=== PATIENT | male | born 1975 | race African-American/Black ===

== ENCOUNTER 2019-03-25 00:42 | Emergency (ER) | payer OTHER ==
[2019-03-25] MEDS ORDERED: Diphtheria,Pertussis(Acell),Tetanus Vaccine 0.5 ML Syringe IM ONE (01:32)
[2019-03-25] MEDS ORDERED: Bacitracin Oint 1 GM U/D Packet TOP ONE (01:32)
--- NOTE | 2019-03-25 01:38 | EDM.PDOC ---
ED HPI GENERAL MEDICAL PROBLEM - General Chief Complaint: Laceration Stated Complaint: CUT FINGER ON RT HAND Time Seen by Provider: 03/25/19 01:29 - History of Present Illness INITIAL COMMENTS - FREE TEXT/NARRATIVE: HISTORY AND PHYSICAL: History of present illness: The patient is a 44-year-old male who presents after cutting his right distal middle finger on a slicer. The patient only speaks Estonian and we are currently trying to get translation as our Kartela is not working. In speaking with the patient he denies any medical history and social history and his last tetanus shot is up-to-date using a cell phone sustainable design coordinator. He has no other injuries. Review of systems: As per history of present illness and below otherwise all systems reviewed and negative. Past medical history: As per history of present illness and as reviewed below otherwise noncontributory. Surgical history: As per history of present illness and as reviewed below otherwise noncontributory. Social history: No reported history of drug or alcohol abuse. Family history: As per history of present illness and as reviewed below otherwise noncontributory. Physical exam: General: Well-developed well-nourished man who is nontoxic and vital signs are noted by me HEENT: Atraumatic, normocephalic, negative for conjunctival pallor or scleral icterus, mucous membranes moist, throat clear, neck supple, nontender, trachea midline. Lungs: Clear to auscultation, breath sounds equal bilaterally, chest nontender. Heart: S1S2, regular ate and rhythm no overt murmurs Abdomen: Deferred Pelvis: Deferred. Genitourinary: Deferred. Rectal: Deferred. Extremities: Atraumatic full range of motion of all extremities with the exception of the palmar surface of the soft tissue of the distal phalanx of the right third digit where there are 2 linear very superficial lacerations one measuring 1.0 cm and the second which is more proximal measuring 1.75 cm. The smaller of the 2 barely violates the epidermis and the second is very superficial as well not even going to the subcutaneous fat. The patient has full range of motion of this digit and there are no other injury seen on the remainder of the digits or the right hand. Neurovascular unremarkable. Neuro: Awake, alert, oriented. Cranial nerves II through XII unremarkable. Cerebellum unremarkable. Motor and sensory unremarkable throughout. Exam nonfocal. Diagnostics: [] Therapeutics: Wound cleansing bacitracin and tube gauze After nursing was able to use a pocket sustainable design coordinator and find out that his tetanus shot is up-to-date he is now telling us that he does not want to answer more questions if we are able to get the sustainable design coordinator and he would just like to go after the wound care. Impression: Superficial lacerations to right middle finger Definitive disposition and diagnosis as appropriate pending reevaluation and review of above. Treatments PROPERTY CONTROLLER: Reports: Dressing(s) right middle finger Pain Score (Numeric/FACES): 6 - Related Data Allergies Allergy/AdvReac Type Severity Reaction Status Date / Time No Known Allergies Allergy Verified 03/25/19 01:15 Home Meds: Home Meds . [No Known Home Meds] 03/25/19 [History] ED ROS GENERAL - Review of Systems Review Of Systems: ROS reveals no pertinent complaints other than HPI. ED EXAM, SKIN/RASH Exam: See Below (See dictation) Course - Vital Signs Last Recorded V/S: Last Vital Signs Temp 36.3 C 03/25/19 01:05 Pulse 77 03/25/19 01:05 Resp 16 03/25/19 01:05 BP 128/81 03/25/19 01:05 Pulse Ox 96 03/25/19 01:05 - Orders/Labs/Meds Orders: Active Orders 24 hr Category Date Time Status Vaccines to be Administered [RC] PER UNIT ROUTINE Care 03/25/19 01:32 Ordered Bacitracin [Bacitracin Oint 1 GM] Med 03/25/19 01:32 Once 1 dose TOP ONETIME ONE Diphth,Pertuss(Acell),Tet Vac [Adacel] Med 03/25/19 01:32 Once 0.5 ml IM .ONCE ONE Departure - Departure Time of Disposition: 01:36 Disposition: Home, Self-Care 01 Condition: Good Clinical Impression: Laceration of finger Qualifiers: Encounter type: initial encounter Finger: middle finger Damage to nail status: without damage Foreign body presence: without foreign body Laterality: right Qualified Code(s): S61.212A - Laceration without foreign body of right middle finger without damage to nail, initial encounter - Discharge Information Referrals: PCP,None [Primary Care Provider] - Additional Instructions: The following information is given to patients seen in the emergency department who are being discharged to home. This information is to outline your options for follow-up care. We provide all patients seen in our emergency department with a follow-up referral. The need for follow-up, as well as the timing and circumstances, are variable depending upon the specifics of your emergency department visit. If you don't have a primary care physician on staff, we will provide you with a referral. We always advise you to contact your personal physician following an emergency department visit to inform them of the circumstance of the visit and for follow-up with them and/or the need for any referrals to a consulting specialist. The emergency department will also refer you to a specialist when appropriate. This referral assures that you have the opportunity for followup care with a specialist. All of these measure are taken in an effort to provide you with optimal care, which includes your followup. Under all circumstances we always encourage you to contact your private physician who remains a resource for coordinating your care. When calling for followup care, please make the office aware that this follow-up is from your recent emergency room visit. If for any reason you are refused follow-up, please contact the [facility] emergency department at and ask to speak to the emergency department charge nurse. [facility] Primary care- Internal Medicine and Family [address] [id number] Keep the wound clean and dry with mild soap and water pat dry and apply bacitracin or Neosporin. Try to use breathable gauze for dressing and not Band- Aids. These call and schedule a follow-up appointment in the clinic with one of our providers or with your provider for further care and evaluation. Return to ER as needed and as discussed - My Orders Last 24 Hours: My Active Orders 03/25/19 01:32 Vaccines to be Administered [RC] PER UNIT ROUTINE Bacitracin [Bacitracin Oint 1 GM] 1 dose TOP ONETIME ONE Diphth,Pertuss(Acell),Tet Vac [Adacel] 0.5 ml IM .ONCE ONE - Assessment/Plan Last 24 Hours: My Active Orders 03/25/19 01:32 Vaccines to be Administered [RC] PER UNIT ROUTINE Bacitracin [Bacitracin Oint 1 GM] 1 dose TOP ONETIME ONE Diphth,Pertuss(Acell),Tet Vac [Adacel] 0.5 ml IM .ONCE ONE
== END 2019-03-25 02:13 | disposition home or self-care (01) ==
LOC: MW.ED 00:42
DX: S61.212A Laceration without foreign body of right middle finger without damage to nail, initial encounter (principal); W26.8XXA Contact with other sharp object(s), not elsewhere classified, initial encounter
CPT/HCPCS: 99282; 99283

== ENCOUNTER 2024-04-05 12:49 | Emergency (ER) | payer BC ==
[2024-04-05] MEDS: Ketorolac 30 MG/ML SDV IVPUSH ONE (13:39)
[2024-04-05] MEDS: Sodium Chloride 0.9% 1,000 ML IV ONE (13:39)
[2024-04-05] MEDS: Ondansetron 4 MG/2 ML SDV IVPUSH ONE (13:39)
[2024-04-05 13:56] LABS: BASOPHILS ABSOLUTE AUTO 0.01 K/uL (0.00-0.20); BASOPHILS PERCENT AUTO 0.3 % (0.0-1.0); EOSINOPHILS ABSOLUTE AUTO 0.06 K/uL (0.00-0.45); EOSINOPHILS PERCENT AUTO 1.8 % (0.0-6.0); HEMATOCRIT 42.8 % (42.0-52.0); HEMOGLOBIN 14.3 g/dL (14.0-18.0); IMMATURE GRAN ABSOLUTE AUTO 0.01 K/uL (0.00-0.05); IMMATURE GRAN PERCENT AUTO 0.3 % (0.0-0.4); LYMPHOCYTES ABSOLUTE AUTO 1.52 K/uL (1.00-4.80); LYMPHOCYTES PERCENT AUTO 44.7 % (24.0-44.0); MEAN CORPUSCULAR HGB CONC 33.4 g/dL (32.0-36.0); MEAN CORPUSCULAR VOLUME 83.8 fL (83.0-99.0); MEAN PLATELET VOLUME 8.9 fL (9.4-12.4); MONOCYTES ABSOLUTE AUTO 0.32 K/uL (0.00-0.80); MONOCYTES PERCENT AUTO 9.4 % (0.0-8.0); NEUTROPHILS ABSOLUTE AUTO 1.48 K/uL (1.80-7.70); NEUTROPHILS PERCENT AUTO 43.5 % (41.0-71.0); PLATELET COUNT,PLT 180 K/uL (150-400); RED BLOOD CELL COUNT 5.11 M/uL (4.52-5.90)
[2024-04-05 14:28] LABS: A/G RATIO 0.9 (0.9-1.6); ALBUMIN 3.4 g/dL (3.4-5.0); BILIRUBIN TOTAL 0.6 mg/dL (0.2-1.0); CALCIUM 8.4 mg/dL (8.5-10.1); CARBON DIOXIDE,CO2 29.4 mmol/L (21.0-32.0); CREATININE 1.2 mg/dL (0.8-1.3); EST CRCL DRUG DOSING (CG) 68.68 mL/min; POTASSIUM,K 3.7 mmol/L (3.5-5.1); PROTEIN TOTAL,TP 7.4 g/dL (6.4-8.2); TSH ULTRASENSITIVE 0.81 uIU/mL (0.36-3.74)
[2024-04-05 14:39] LABS: CORONAVIRUS COVID-19 NAA NEGATIVE (NEGATIVE); INFLUENZA A NAA NEGATIVE (NEGATIVE); INFLUENZA B NAA NEGATIVE (NEGATIVE)
== END 2024-04-05 15:16 | disposition home or self-care (01) ==
LOC: MW.ED 12:49
DX: R07.9 Chest pain, unspecified (principal); R51.9 Headache, unspecified; Z75.8 Other problems related to medical facilities and other health care
CPT/HCPCS: 0240U; 36415; 80053; 84443; 84484; 85025; 93005; 96361; 96374; 96375; 99285; J1885; J2405; J7030; 93010; 99284

== ENCOUNTER 2024-04-12 19:06 | Emergency (ER) | payer BC ==
[2024-04-12 19:23] LABS: BASOPHILS ABSOLUTE AUTO 0.02 K/uL (0.00-0.20); BASOPHILS PERCENT AUTO 0.4 % (0.0-1.0); EOSINOPHILS ABSOLUTE AUTO 0.08 K/uL (0.00-0.45); EOSINOPHILS PERCENT AUTO 1.8 % (0.0-6.0); HEMATOCRIT 42.2 % (42.0-52.0); HEMOGLOBIN 14.1 g/dL (14.0-18.0); IMMATURE GRAN ABSOLUTE AUTO 0.01 K/uL (0.00-0.05); IMMATURE GRAN PERCENT AUTO 0.2 % (0.0-0.4); LYMPHOCYTES ABSOLUTE AUTO 2.13 K/uL (1.00-4.80); LYMPHOCYTES PERCENT AUTO 46.8 % (24.0-44.0); MEAN CORPUSCULAR HEMOGLOBIN 28.4 pg (28.0-32.0); MEAN CORPUSCULAR HGB CONC 33.4 g/dL (32.0-36.0); MEAN CORPUSCULAR VOLUME 84.9 fL (83.0-99.0); MEAN PLATELET VOLUME 8.9 fL (9.4-12.4); MONOCYTES ABSOLUTE AUTO 0.46 K/uL (0.00-0.80); MONOCYTES PERCENT AUTO 10.1 % (0.0-8.0); NEUTROPHILS ABSOLUTE AUTO 1.85 K/uL (1.80-7.70); NEUTROPHILS PERCENT AUTO 40.7 % (41.0-71.0); PLATELET COUNT,PLT 187 K/uL (150-400); RED BLOOD CELL COUNT 4.97 M/uL (4.52-5.90); WHITE BLOOD CELL COUNT,WBC 4.55 K/uL (3.9-11.3)
[2024-04-12] MEDS: Sodium Chloride 0.9% 10 ML Syringe FLUSH PRN (19:42)
[2024-04-12] MEDS: Sodium Chloride 0.9% 2.5 ML Syringe FLUSH PRN (19:42)
[2024-04-12 19:45] LABS: A/G RATIO 0.9 (0.9-1.6); ALBUMIN 3.7 g/dL (3.4-5.0); BILIRUBIN TOTAL 0.3 mg/dL (0.2-1.0); CALCIUM 8.6 mg/dL (8.5-10.1); CARBON DIOXIDE,CO2 26.6 mmol/L (21.0-32.0); CREATININE 1.1 mg/dL (0.8-1.3); EST CRCL DRUG DOSING (CG) 74.93 mL/min; MAGNESIUM 1.9 mg/dL (1.8-2.4); POTASSIUM,K 3.9 mmol/L (3.5-5.1); PROTEIN TOTAL,TP 7.6 g/dL (6.4-8.2)
[2024-04-12] MEDS: Iopamidol 755 MG/ML 500 ML Multipack Bottle IVPUSH ONE (19:59)
[2024-04-12] MEDS: Morphine 4 MG/ML Syringe IVPUSH ONE (20:20)
== END 2024-04-12 23:00 | disposition home or self-care (01) ==
LOC: MW.ED 19:06
DX: R07.9 Chest pain, unspecified (principal); R51.9 Headache, unspecified
CPT/HCPCS: 36415; 71275; 80053; 83690; 83735; 84484; 85025; 93005; 96374; 99285; J2270; J3490; Q9967

== ENCOUNTER 2025-01-05 14:30 | Emergency (ER) | payer BC ==
[2025-01-05 15:44] LABS: BASOPHILS ABSOLUTE AUTO 0.02 K/uL (0.00-0.20); BASOPHILS PERCENT AUTO 0.9 % (0.0-1.0); EOSINOPHILS ABSOLUTE AUTO 0.05 K/uL (0.00-0.45); EOSINOPHILS PERCENT AUTO 2.1 % (0.0-6.0); HEMATOCRIT 43.9 % (42.0-52.0); HEMOGLOBIN 14.5 g/dL (14.0-18.0); IMMATURE GRAN ABSOLUTE AUTO 0.01 K/uL (0.00-0.05); IMMATURE GRAN PERCENT AUTO 0.4 % (0.0-0.4); LYMPHOCYTES ABSOLUTE AUTO 0.86 K/uL (1.00-4.80); LYMPHOCYTES PERCENT AUTO 36.6 % (24.0-44.0); MEAN CORPUSCULAR HEMOGLOBIN 27.9 pg (28.0-32.0); MEAN CORPUSCULAR VOLUME 84.6 fL (83.0-99.0); MEAN PLATELET VOLUME 9.3 fL (9.4-12.4); MONOCYTES ABSOLUTE AUTO 0.35 K/uL (0.00-0.80); MONOCYTES PERCENT AUTO 14.9 % (0.0-8.0); NEUTROPHILS ABSOLUTE AUTO 1.06 K/uL (1.80-7.70); NEUTROPHILS PERCENT AUTO 45.1 % (41.0-71.0); PLATELET COUNT,PLT 135 K/uL (150-400); RED BLOOD CELL COUNT 5.19 M/uL (4.52-5.90); WHITE BLOOD CELL COUNT,WBC 2.35 K/uL (3.9-11.3)
[2025-01-05] MEDS: Iopamidol 755 MG/ML 500 ML Multipack Bottle IVPUSH STA (15:59)
[2025-01-05] MEDS: Ibuprofen 600 MG Tab PO ONE (16:12)
[2025-01-05] MEDS: Acetaminophen 500 MG Tab PO ONE (16:13)
[2025-01-05 16:26] LABS: LACTIC ACID 1.1 mmol/L (0.4-2.0)
[2025-01-05 16:35] LABS: A/G RATIO 0.9 (0.9-1.6); ALBUMIN 3.6 g/dL (3.4-5.0); BILIRUBIN TOTAL 0.3 mg/dL (0.2-1.0); CALCIUM 8.4 mg/dL (8.5-10.1); CARBON DIOXIDE,CO2 31.1 mmol/L (21.0-32.0); CREATININE 1.2 mg/dL (0.8-1.3); EST CRCL DRUG DOSING (CG) 66.46 mL/min; POTASSIUM,K 4.3 mmol/L (3.5-5.1); PROTEIN TOTAL,TP 7.6 g/dL (6.4-8.2)
== END 2025-01-05 17:17 | disposition home or self-care (01) ==
LOC: MW.ED 14:30
DX: J06.9 Acute upper respiratory infection, unspecified (principal); B34.9 Viral infection, unspecified; Z75.3 Unavailability and inaccessibility of health-care facilities; Z90.49 Acquired absence of other specified parts of digestive tract
CPT/HCPCS: 36415; 71045; 71260; 80053; 83605; 83690; 83735; 85025; 87040; 87428; 99284; A9270; Q9967; 99283